=== PATIENT | female | born 1985 | race Caucasian/White ===

== ENCOUNTER 2017-06-26 15:00 | Day surgery (SDC) | payer SELFPAY ==
[~2017-06-26] VITALS: Ht 167.6 cm; Wt 90.9 kg
[2017-06-26 15:51] LABS: EOSINOPHIL (%) 0.2 % (0-5); HEMATOCRIT 25.8 % (36.0-46.0); IMMATURE GRANULOCYTE (%) 0.4 % (0.0-0.7); IMMATURE GRANULOCYTE COUNT 0.1 K/uL; LYMPHOCYTE COUNT 1.2 K/uL (1.0-2.8); MCH 30.8 PG (29.0-34.0); MCHC 35.7 G/DL (30.0-36.0); MCV 86.3 FL (83-99); MEAN PLAT.VOLUME 11.1 uM^3 (9.5-12.4); MONOCYTE (%) 8.2 % (3-12); NEUTROPHIL (%) 81.3 % (45-76); PLATELET COUNT 215 K/uL (156-360); RBC DIS.WIDTH-SD 37.3 % (39-53); RED BLOOD COUNT 2.99 M/uL (3.80-5.20); WHITE BLOOD COUNT 12.3 K/uL (4.1-10.2)
[2017-06-26 15:57] LABS: INTER. NORMALIZED RATIO 1.2; PROTHROMBIN TIME 13.3 SEC (10.2-12.9)
[2017-06-26 16:00] LABS: CHLORIDE 105 mEq/L (99-109); POTASSIUM 3.9 mEq/L (3.7-5.4); SODIUM 137 mEq/L (136-147)
[2017-06-26 16:02] LABS: GLUCOSE 107 mg/dL (70-99)
[2017-06-26 16:03] LABS: ANION GAP 10 MEQ/L (2-14)
[2017-06-26 16:04] LABS: TOTAL BILIRUBIN 0.4 mg/dL (0.0-1.0)
[2017-06-26 16:05] LABS: ALKALINE PHOSPHATASE 62 IU/L (3-129)
[2017-06-26 16:06] LABS: GFR ESTIMATE (CALCULATED) > 59 mL/min/
[2017-06-26 16:07] LABS: UREA NITROGEN (BUN) 8 mg/dL (9-23)
[2017-06-26 16:14] LABS: QUANTITATIVE HCG 2712.7 MIU/ML
[2017-06-26] MEDS ORDERED: COLACE100 MG PO (18:25)
[2017-06-26] MEDS ORDERED: PROMETRIUM200 M1 PO (18:27)
[2017-06-26] MEDS ORDERED: GAS-X EXTRA ST125 MG PO (18:28)
[2017-06-26] MEDS ORDERED: ROXICODONE5 MG PO (20:24)
[2017-06-26 21:16] VITALS: BP 122/56
[2017-06-27 00:26] VITALS: BP 116/66
[2017-06-27 03:42] VITALS: BP 105/55
[2017-06-27 06:56] LABS: EOSINOPHIL (%) 0 % (0-5); HEMATOCRIT 23.3 % (36.0-46.0); IMMATURE GRANULOCYTE (%) 0.5 % (0.0-0.7); IMMATURE GRANULOCYTE COUNT 0.1 K/uL; INSTRUMENT ABS NEUTROPHIL CT 10.6 K/uL; LYMPHOCYTE COUNT 0.7 K/uL (1.0-2.8); MCH 30.7 PG (29.0-34.0); MCHC 34.8 G/DL (30.0-36.0); MCV 88.3 FL (83-99); MEAN PLAT.VOLUME 11.5 uM^3 (9.5-12.4); MONOCYTE (%) 5.2 % (3-12); MONOCYTE COUNT 0.6 K/uL (0-0.8); NEUTROPHIL (%) 88.6 % (45-76); NEUTROPHIL COUNT 10.6 K/uL (1.8-6.4); PLATELET COUNT 195 K/uL (156-360); RBC DIS.WIDTH-CV 12.3 % (11.8-14.6); RBC DIS.WIDTH-SD 39.3 % (39-53); RED BLOOD COUNT 2.64 M/uL (3.80-5.20)
[2017-06-27 07:40] VITALS: BP 116/59
[2017-06-27] MEDS ORDERED: FEOSOL325 MG PO (08:18)
[2017-06-27] MEDS ORDERED: MOTRIN800 MG PO (08:18)
== END 2017-06-27 10:05 | disposition home or self-care (01) ==
LOC: EME 15:00 → SDC 18:01 → 2SOUTH 19:30 → 2EAST 19:30 → 2SOUTH 19:30 → ENRESERV 20:17 → 2EAST 20:47
PROVIDERS: Emergency Medicine; Obstetrics & Gynecology
DX: O00.10 Tubal pregnancy without intrauterine pregnancy (principal); K66.1 Hemoperitoneum; N83.8 Other noninflammatory disorders of ovary, fallopian tube and broad ligament; D64.9 Anemia, unspecified
CPT/HCPCS: 80053; 84702; 85025; 85610; 86850; 86900; 86901; 86920; 88305; 99281; 99285; G0378; J0690; J1170; J2250; J3010; J7030; J7120; S0020

== ENCOUNTER 2017-12-06 00:28 | Emergency (ER) | payer SELFPAY ==
[~2017-12-06] VITALS: Ht 165.1 cm; Wt 94.9 kg
[~2017-12-06 00:28] MED LIST: COLACE100 MG PO; FEOSOL325 MG PO; GAS-X EXTRA ST125 MG PO; MOTRIN800 MG PO; PROMETRIUM200 M1 PO; ROXICODONE5 MG PO
[2017-12-06 01:08] LABS: APPEARANCE CLEAR ((CLEAR)); BILIRUBIN NEGATIVE; BLOOD MODERATE; COLOR STRAW ((YELLOW)); GLUCOSE (STRIP) NEGATIVE; KETONES NEGATIVE; LEUKOCYTES NEGATIVE; NITRITE NEGATIVE; PROTEIN (STRIP) NEGATIVE; SPECIFIC GRAVITY 1.004 (1.000-1.030); UROBILINOGEN 0.2 MG/DL (0.2-1.0)
[2017-12-06 01:13] LABS: HEMATOCRIT 35.7 % (36.0-46.0); HEMOGLOBIN 12.8 G/DL (11.9-15.5); MCH 30.5 PG (29.0-34.0); MCHC 35.9 G/DL (30.0-36.0); PLATELET COUNT 230 K/uL (156-360); RBC DIS.WIDTH-CV 12.4 % (11.8-14.6); RBC DIS.WIDTH-SD 37.8 % (39-53); WHITE BLOOD COUNT 8.8 K/uL (4.1-10.2)
[2017-12-06 01:13] LABS: BACTERIA RARE /HPF; EPITHELIAL CELLS RARE /HPF; MUCUS NONE SEEN /LPF; RED BLOOD CELLS 0-5 /HPF (0-5); UCUL ADDED? NO; WHITE BLOOD CELLS 0-5 /HPF (0-5)
[2017-12-06 06:06] VITALS: BP 107/64
[2017-12-06] MEDS ORDERED: PRENATAL TABLE1 EAC3 PO (16:25)
[2017-12-07] MEDS ORDERED: ENDOCET 5-3251 EACH PO (19:09)
== END 2017-12-06 06:07 | disposition home or self-care (01) ==
LOC: EME 00:28
DX: O20.9 Hemorrhage in early pregnancy, unspecified (principal); R10.30 Lower abdominal pain, unspecified; Z3A.01 Less than 8 weeks gestation of pregnancy
CPT/HCPCS: 76801; 81003; 84702; 85027; 86900; 86901; 99281; 99284

== ENCOUNTER 2017-12-07 14:05 | Day surgery (SDC) | payer SELFPAY ==
[~2017-12-07] VITALS: Ht 165.1 cm; Wt 94.8 kg
[~2017-12-07 14:05] MED LIST changes: +PRENATAL TABLE1 EAC3 PO
[2017-12-07 14:57] VITALS: BP 131/73
[2017-12-07] MEDS ORDERED: ENDOCET 5-3251 EACH PO (19:09)
[2017-12-07 20:10] VITALS: BP 110/56
[2017-12-07 21:10] VITALS: BP 115/63
== END 2017-12-07 21:35 | disposition home or self-care (01) ==
LOC: SDC 14:05
DX: O00.101 Right tubal pregnancy without intrauterine pregnancy (principal); K66.0 Peritoneal adhesions (postprocedural) (postinfection); N80.3 Endometriosis of pelvic peritoneum
CPT/HCPCS: 86850; 86900; 86901; 88305; J0131; J0690; J1100; J1170; J1885; J2250; J2405; J2710; J3010; S0020